=== PATIENT | male | born 1970 | race Caucasian/White ===

== ENCOUNTER 2019-06-30 12:34 | Inpatient (IN) | payer BC ==
[~2019-06-30] VITALS: Ht 182.9 cm; Wt 106.9 kg
[~2019-06-30 12:34] MED LIST: etomidate 2mg/ml inj. ONE; sod chloride 0.9% 10ml flush syringe IV ONE
[2019-06-30] MEDS ORDERED: normal saline 1000ML IV soln IVB ONE (13:00)
[2019-06-30] MEDS ORDERED: diltiazem 5mg/ml 5ml inj. IV ONE (13:00)
[2019-06-30] MEDS ORDERED: diltiazem-D5W 125mg/125ml 125 ML IV ONE (13:00)
[2019-06-30] MEDS ORDERED: diltiazem-NS 100mg/100ml 100 ML IV ONE (13:06)
--- NOTE | 2019-06-30 13:29 | NUR ---
CALLED PHARMACY, AMAURY ARNOLD NOT READY
[2019-06-30 13:32] LABS: BASOPHILS % (AUTO) 0.4 % (0-1); EOSINOPHILS # (AUTO) 0.1 X10'3 (0-0.9); EOSINOPHILS % (AUTO) 0.8 % (0-6); HEMATOCRIT 42.5 % (42.0-52.0); HEMOGLOBIN 14.6 g/dl (14.0-17.9); LYMPHOCYTES # (AUTO) 1.9 X10'3 (1.1-4.8); LYMPHOCYTES % (AUTO) 17.9 % (21-51); MEAN CORPUSCULAR HEMOGLOBIN 35.9 PG (27.0-31.0); MEAN CORPUSCULAR HGB CONC 34.4 g/dL (33.0-36.5); MEAN CORPUSCULAR VOLUME 104.2 FL (78-98); MEAN PLATELET VOLUME 8.1 FL (7.4-10.4); MONOCYTES # (AUTO) 0.9 X10'3 (0-0.9); MONOCYTES % (AUTO) 8.9 % (2-12); NEUTROPHILS # (AUTO) 7.5 X10'3 (1.8-7.7); PLATELET COUNT 284 X10'3 (140-440); RED BLOOD COUNT 4.08 X10'6 (4.70-6.10); RED CELL DISTRIBUTION WIDTH 15.9 % (11.5-14.5); WHITE BLOOD COUNT 10.4 X10'3 (4.5-11.0)
[2019-06-30] MEDS ORDERED: ondansetron/PF 4mg/2ml inj IV ONE (13:45)
[2019-06-30] MEDS ORDERED: LORazepam 2 mg/ml vial IV ONE (13:45)
--- NOTE | 2019-06-30 13:47 | NUR ---
DR SINGER IN FORMED THAT CARDIZEM BOLUS DID NOT AFFECT PATIETN'S HR. INFORMED PATIENT DRINKS 2 PINTS VODKA DAILY LAST DRINK 1000 TODAY
[2019-06-30 13:48] LABS: ALANINE AMINOTRANSFERASE 124 U/L (12-78); ALBUMIN 3.4 G/DL (3.4-5.0); ALKALINE PHOSPHATASE 50 IU/L (46-116); ANION GAP 14 (8-16); ASPARTATE AMINO TRANSFERASE 167 U/L (10-37); BILIRUBIN,TOTAL 1.5 MG/DL (0.1-1.0); BLOOD UREA NITROGEN 23 MG/DL (7-18); BUN/CREATININE RATIO 15.1 (5.4-32.0); CALCIUM 8.9 MG/DL (8.5-10.1); CHLORIDE 99 MMOL/L (99-107); CREATININE 1.52 MG/DL (0.60-1.10); GLUCOSE 109 MG/DL (70-104); POTASSIUM 3.6 MMOL/L (3.5-5.1); SODIUM 139 MMOL/L (135-145); TOTAL CARBON DIOXIDE 26.2 MMOL/L (24-32); TOTAL PROTEIN 6.8 G/DL (6.4-8.2); eGFR 49 ML/MIN
[2019-06-30 13:55] LABS: ETHANOL 0.022 GM/DL (0.0-0.010); LIPASE 214 U/L (73-393); MAGNESIUM 1.5 MG/DL (1.5-2.4)
--- NOTE | 2019-06-30 14:35 | NUR ---
PATIENT HR STILL IN THE 140'S MAGNESIUM IS 1.[address] BOB DR SINGER IS NOT IN THE ER AT THIS MOMENT. NO ORDERS
--- NOTE | 2019-06-30 14:36 | NUR ---
patient standing at bedside attempting to urinate
[2019-06-30] MEDS ORDERED: magnesium 2GM in 50ml NS 50 ML IV ONE (14:45)
[2019-06-30] MEDS ORDERED: aspirin 81mg tab.chew PO ONE (14:50)
[2019-06-30] MEDS ORDERED: metoprolol tartrate 1mg/ml inj IV ONE (14:50)
[2019-06-30] MEDS ORDERED: NO HOME MEDS (15:04)
[2019-06-30] MEDS ORDERED: dextrose 50%-water 50ml dispensing syringe IV PRN (15:20)
[2019-06-30] MEDS ORDERED: LORazepam 2 mg/ml vial IV PRN (15:20)
[2019-06-30] MEDS ORDERED: potassium Cl 20 mEq SR tablet PO PRN ×2 (15:20)
[2019-06-30] MEDS ORDERED: haloperidol 5mg tablet PO PRN ×2 (15:20→21:15)
[2019-06-30] MEDS ORDERED: LORazepam 1 MG tablet PO PRN (15:20)
[2019-06-30] MEDS ORDERED: morphine 2 MG/ML inj. syringe IV PRN (15:20)
[2019-06-30] MEDS ORDERED: diltiazem-NS 100mg/100ml 100 ML IV SCH ×2 (15:20→19:30)
[2019-06-30] MEDS ORDERED: thiamine 100mg/ml 2ml inj. IV ONE (15:20)
[2019-06-30] MEDS ORDERED: magnesium Cl slow-release 64mg tablet PO PRN (15:20)
[2019-06-30] MEDS ORDERED: acetaminophen 325mg tablet PO PRN ×2 (15:20)
[2019-06-30] MEDS ORDERED: magnesium 4gm in 100ml NS 100 ML IV PRN (15:20)
[2019-06-30] MEDS ORDERED: HYDROcodone/acetaminophen 5mg/325mg tablet PO PRN (15:20)
[2019-06-30] MEDS ORDERED: magnesium 2GM in 50ml NS 50 ML IV PRN (15:20)
[2019-06-30] MEDS ORDERED: haloperidol lactate 5mg/ml inj IM PRN ×2 (15:20→21:15)
[2019-06-30] MEDS ORDERED: ondansetron/PF 4mg/2ml inj IV PRN (15:20)
[2019-06-30] MEDS ORDERED: potassium CL 10mEq/100ml bag 100 ML IV PRN ×2 (15:20)
[2019-06-30] MEDS: normal saline 1000ml 1,000 ML IV SCH ×2 (15:57→19:45)
--- NOTE | 2019-06-30 15:58 | NUR ---
LOPRESSOR NOT GIVEN AT THIS TIME, PT'S BP 122/80
[2019-06-30 16:22] LABS: CLARITY,URINE CLEAR (Clear); GLUCOSE, URINE NEGATIVE (Neg); KETONES,URINE TRACE mg/dl (Neg); LEUKOCYTE ESTERASE ,URINE NEGATIVE (Neg); NITRITES, URINE NEGATIVE (Neg); OCCULT BLOOD,URINE TRACE-INTACT (Neg); PROTEIN,URINE 100 mg/dl (Neg)
[2019-06-30 16:25] LABS: URINE AMPHETAMINE SCREEN NEGATIVE (Neg); URINE BARBITUATE SCREEN NEGATIVE (Neg); URINE BENZODIAZEPINES SCREEN NEGATIVE (Neg); URINE CANNABINOID SCREEN NEGATIVE (Neg); URINE COCAINE SCREEN NEGATIVE (Neg); URINE METHADONE SCREEN NEGATIVE (Neg); URINE OPIATE SCREEN NEGATIVE (Neg); URINE PHENCYCLIDINE SCREEN NEGATIVE (Neg)
[2019-06-30 16:26] LABS: COLOR,URINE DARK YELLOW (Yellow); UA COLLECTION TYPE CLN CATCH MIDSTREAM
[2019-06-30 16:28] LABS: BACTERIA,URINE NONE SEEN /HPF (Neg); MUCUS STRANDS FEW /LPF (Neg); RBC,URINE 0-2 /HPF (0-2); SQUAMOUS EPITHELIAL CELL,UR FEW /LPF (FEW); WBC,URINE NONE SEEN /HPF (0-4)
[2019-06-30] MEDS ORDERED: iohexol 350MG/ML 100ml bottle IV ONE (16:34)
--- NOTE | 2019-06-30 16:56 | NUR ---
PT TO CT
[2019-06-30] MEDS ORDERED: FLU VACC QS 2019-20 (6 MOS UP) 60 MCG/0.5 ML VIAL IMVAC ONE (17:40)
[2019-06-30] MEDS ORDERED: pneumococcal 23-VAL P-sac vacc 25 mcg/0.5ml vial IMVAC ONE (17:40)
[2019-06-30 18:25] VITALS: BP 113/77
--- NOTE | 2019-06-30 18:29 | NUR ---
Patient in room MED 308. I have received report from Santa BRIGGS and had the opportunity to ask questions and assume patient care. bedside report completed.family present. no distress noted. Addendum: 06/30/19 at 1835 by Dary Bo RN reported from Sona ramirez RN. no family at bedside. no chest pain reports
--- NOTE | 2019-06-30 19:03 | NUR ---
notified Dr. Martin 1.pt HR sustained 138, with cardiezm administrered at 20ml. 2. per chart check cardizem ordered for 5 mls/hr. adjusted the cardizem to reflect current order. HR sustained 137. BP 111/93. Dr. Martin suggested to call hui DURAN for new cardizem orders. will administer 2000 beta isis now and continue to monitor HR . 3. currently NS 100 mls/hr. Lab show BNP 4105. previously recieved 2L/NS in ER. new orders to decrease NS to 50ml/hr Addendum: 06/30/19 at 2012 by Dary Bo RN 4. increase ETOH protocol to moderate
[2019-06-30] MEDS: docusate sod 100mg capsule PO SCH (19:44)
[2019-06-30] MEDS: carVEDilol 3.125mg tablet PO SCH (19:44)
[2019-06-30] MEDS: heparin, porcine 5000 units/ml vial SQ SCH (19:47)
[2019-06-30 20:11] VITALS: BP 116/92
[2019-06-30] MEDS ORDERED: temazepam 15mg capsule PO PRN (21:00)
[2019-06-30] MEDS: LORazepam 2 mg/ml vial IV PRN (21:42)
[2019-06-30 22:12] VITALS: BP 113/72
--- NOTE | 2019-06-30 22:29 | NUR ---
2nd page to Dr. Sahu. PAGER ID: [phone] MESSAGE: pattie resendiz 308 admit chest pain, SOB. ETOH HR remains 136 with diltizem drip at 10 mls. bp 113/72. will continue to monitor new orders increase cardizem to 15ml/hr
[2019-06-30] MEDS ORDERED: flumazenil 0.1 mg/ml inj. IV ONE (23:20)
[2019-06-30 23:25] VITALS: BP 48/11
[2019-06-30 23:30] VITALS: BP 65/23
[2019-06-30] MEDS ORDERED: normal saline 1000ml 1,000 ML IV ONE (23:30)
--- NOTE | 2019-06-30 23:30 | NUR ---
Rapid called. 2335 pt blood pressure 48/11 stop diltizem. recheck manual SBP 58. recheck 65/23, placed in Trendelenburg , NS open wide. pt a/o x1 hallicination noted. RT completed Blood gas. MD at bedside. new orders. d/c diltizem, bolus 1 L. -- 2339 bp 103/86 HR 135 --0000 bp 119/33 HR 116 will continue to monitor
[2019-06-30 23:39] VITALS: BP 103/86
[2019-06-30 23:41] LABS: ABG BASE EXCESS -5.2 mmol/L (-2.0-3.0); ABG HCO3 19.3 mmol/L (22.0-26.0); ABG OXYGEN SATURATION 86.7 % (95-98); ABG PH (T) 7.361 (7.350-7.450); ABG PO2 (T) 58.1 mmHg (83-108); ALLEN'S TEST Positive; FCOHb 1.3 % (0.5-1.5); FMetHb 0.2 % (0.3-1.12); FO2Hb 85.4 % (94-100); PATIENT TEMPERATURE 37.1; TOTAL HEMOGLOBIN 14.9 G/dl (14.0-17.9)
[2019-07-01] VITALS (20 sets, daily range): BP systolic 63–137; BP diastolic 33–89
[2019-07-01] MEDS: LORazepam 2 mg/ml vial IV PRN ×3 (00:53→09:09)
[2019-07-01 02:43] LABS: PARTIAL THROMBOPLASTIN TIME 27 SECONDS (22-32)
[2019-07-01 02:47] LABS: ALANINE AMINOTRANSFERASE 587 U/L (12-78); ALBUMIN 3.2 G/DL (3.4-5.0); ALKALINE PHOSPHATASE 58 IU/L (46-116); ANION GAP 13 (8-16); ASPARTATE AMINO TRANSFERASE 825 U/L (10-37); BILIRUBIN,TOTAL 3.9 MG/DL (0.1-1.0); BLOOD UREA NITROGEN 25 MG/DL (7-18); BUN/CREATININE RATIO 11.9 (5.4-32.0); CALCIUM 7.9 MG/DL (8.5-10.1); CHLORIDE 96 MMOL/L (99-107); GLUCOSE 98 MG/DL (70-104); HDL CHOLESTEROL 41 MG/DL (35-60); LDL CHOLESTEROL 83 MG/DL (50-100); MAGNESIUM 2.1 MG/DL (1.5-2.4); POTASSIUM 4.4 MMOL/L (3.5-5.1); SODIUM 132 MMOL/L (135-145); TOTAL CARBON DIOXIDE 23.1 MMOL/L (24-32); eGFR 34 ML/MIN
[2019-07-01 02:51] LABS: ALBUMIN/GLOBULIN RATIO 0.9 (1.1-1.5); CHOL/HDL RATIO 2.8 (0.00-4.99); CHOLESTEROL 116 MG/DL (0-200); TOTAL PROTEIN 6.8 G/DL (6.4-8.2); TRIGLYCERIDES 73 MG/DL (20-135)
[2019-07-01 02:55] LABS: BASOPHILS # (AUTO) 0.1 X10'3 (0-0.2); BASOPHILS % (AUTO) 0.6 % (0-1); EOSINOPHILS % (AUTO) 0.3 % (0-6); HEMATOCRIT 44.8 % (42.0-52.0); LYMPHOCYTES # (AUTO) 2.5 X10'3 (1.1-4.8); LYMPHOCYTES % (AUTO) 20.8 % (21-51); MEAN CORPUSCULAR HEMOGLOBIN 35.6 PG (27.0-31.0); MEAN CORPUSCULAR HGB CONC 33.5 g/dL (33.0-36.5); MEAN CORPUSCULAR VOLUME 106.4 FL (78-98); MEAN PLATELET VOLUME 8.6 FL (7.4-10.4); MONOCYTES # (AUTO) 1.1 X10'3 (0-0.9); MONOCYTES % (AUTO) 9.2 % (2-12); NEUTROPHILS # (AUTO) 8.1 X10'3 (1.8-7.7); NEUTROPHILS % (AUTO) 69.1 % (42-75); PLATELET COUNT 268 X10'3 (140-440); RED BLOOD COUNT 4.21 X10'6 (4.70-6.10); RED CELL DISTRIBUTION WIDTH 16.1 % (11.5-14.5); WHITE BLOOD COUNT 11.8 X10'3 (4.5-11.0)
[2019-07-01] MEDS ORDERED: insulin Lispro (HumaLOG) vial - multi-dose SQ SCH (04:30)
[2019-07-01] MEDS ORDERED: dextrose 50%-water 50ml dispensing syringe IV PRN ×2 (04:30)
[2019-07-01] MEDS ORDERED: dextrose ORAL solution 15 GM/59 ML bottle PO PRN ×2 (04:30)
[2019-07-01] MEDS ORDERED: glucagon, human recombinant 1mg kit SUBCUT PRN (04:30)
--- NOTE | 2019-07-01 05:13 | NUR ---
Dr. Sahu notified r/t hypoglycemia. critical blood glucose of 42 at 0420 pt had no IV access. administred juice, recheck blood glucose 34. administered 30 grams dexrose PO recheck blood glucose 60 alternative IV access placed. administered 25 gram IV D50 will continue to monitor.
--- NOTE | 2019-07-01 06:00 | NUR ---
Patient in room MED 308. I have received report from CHESTER Llanos and had the opportunity to ask questions and assume patient care.
[2019-07-01] MEDS: K and/or MAG REPLACEMENT MC SCH (08:00)
[2019-07-01] MEDS: nicotine 14mg patch - 24hr TD SCH (08:00)
[2019-07-01] MEDS: lisinopril 10 MG tablet PO SCH (08:00)
[2019-07-01] MEDS: docusate sod 100mg capsule PO SCH (08:00)
--- NOTE | 2019-07-01 08:15 | NUR ---
ULTRASOUND PAGED: 308: MARIELA - GONZALO US ORDERED. TY
[2019-07-01] MEDS: carVEDilol 3.125mg tablet PO SCH ×2 (09:05→20:00)
[2019-07-01] MEDS: heparin, porcine 5000 units/ml vial SQ SCH ×2 (09:06→21:34)
--- NOTE | 2019-07-01 10:10 | NUR ---
Started code blue at 10:10. Pt was observed going into bradycardia (35), then became unresponsive. Started resuscitation process. Pt transferred to ICU around 10:40 am. Hand off report done in ICU at bedside.
[2019-07-01 10:46] LABS: BASOPHILS # (AUTO) 0.1 X10'3 (0-0.2); BASOPHILS % (AUTO) 0.2 % (0-1); EOSINOPHILS % (AUTO) 0.1 % (0-6); HEMATOCRIT 44.8 % (42.0-52.0); HEMOGLOBIN 14.6 g/dl (14.0-17.9); LYMPHOCYTES # (AUTO) 1.8 X10'3 (1.1-4.8); LYMPHOCYTES % (AUTO) 7.7 % (21-51); MEAN CORPUSCULAR HEMOGLOBIN 35.9 PG (27.0-31.0); MEAN CORPUSCULAR HGB CONC 32.5 g/dL (33.0-36.5); MEAN CORPUSCULAR VOLUME 110.3 FL (78-98); MEAN PLATELET VOLUME 8.8 FL (7.4-10.4); MONOCYTES # (AUTO) 2.4 X10'3 (0-0.9); MONOCYTES % (AUTO) 10.3 % (2-12); NEUTROPHILS # (AUTO) 18.8 X10'3 (1.8-7.7); NEUTROPHILS % (AUTO) 81.7 % (42-75); PLATELET COUNT 165 X10'3 (140-440); RED BLOOD COUNT 4.06 X10'6 (4.70-6.10); RED CELL DISTRIBUTION WIDTH 16.8 % (11.5-14.5); WHITE BLOOD COUNT 23.1 X10'3 (4.5-11.0)
[2019-07-01] MEDS ORDERED: midazolam 2 mg/2 ml injection ONE ×2 (10:59)
--- NOTE | 2019-07-01 11:00 | NUR ---
Patient in room ICU 2042. I have received pt from Clary BRIGGS and assumed patient care.
[2019-07-01 11:01] LABS: PARTIAL THROMBOPLASTIN TIME 31 SECONDS (22-32)
[2019-07-01] MEDS: K, MAG and/or Phos replacement - Verify level? MC SCH (11:10)
[2019-07-01] MEDS ORDERED: ondansetron/PF 4mg/2ml inj IV PRN (11:10)
[2019-07-01] MEDS ORDERED: morphine 4 MG/ML inj SYRINge IV PRN (11:10)
[2019-07-01] MEDS ORDERED: potassium Cl 20 mEq SR tablet PO PRN ×2 (11:10)
[2019-07-01] MEDS ORDERED: morphine 2 MG/ML inj. syringe IV PRN (11:10)
[2019-07-01] MEDS ORDERED: acetaminophen 325mg tablet PO PRN (11:10)
[2019-07-01] MEDS ORDERED: magnesium hydroxide 30ml (MOM) UD suspension PO PRN (11:10)
[2019-07-01 11:13] LABS: ALBUMIN 3.1 G/DL (3.4-5.0); ALKALINE PHOSPHATASE 68 IU/L (46-116); AMYLASE 31 U/L (25-115); ANION GAP 19 (8-16); BILIRUBIN,TOTAL 6.3 MG/DL (0.1-1.0); BLOOD UREA NITROGEN 32 MG/DL (7-18); BUN/CREATININE RATIO 12.9 (5.4-32.0); CALCIUM 8.5 MG/DL (8.5-10.1); CHLORIDE 95 MMOL/L (99-107); CREATININE 2.49 MG/DL (0.60-1.10); GLUCOSE 83 MG/DL (70-104); LIPASE 402 U/L (73-393); MAGNESIUM 2.2 MG/DL (1.5-2.4); SODIUM 132 MMOL/L (135-145); TROPONIN I 0.19 NG/ML (0.0-0.05); eGFR 28 ML/MIN
[2019-07-01 11:16] LABS: ABG BASE EXCESS -22.2 mmol/L (-2.0-3.0); ABG HCO3 10.6 mmol/L (22.0-26.0); ABG OXYGEN SATURATION 88.6 % (95-98); ABG PCO2 (T) 52.9 mmHg (35.0-45.0); ABG PH (T) 6.919 (7.350-7.450); ABG PO2 (T) 88.6 mmHg (83-108); FCOHb 0.5 % (0.5-1.5); FMetHb 0.3 % (0.3-1.12); FO2Hb 87.9 % (94-100); MINUTE VOLUME 12 L/min; PEEP 15 cm H2O; RESPIRATORY RATE 18 b/min; RESPIRATORY RATE (OBSERVED) 21 b/min; TIDAL VOLUME 550 mL; TOTAL HEMOGLOBIN 14.3 G/dl (14.0-17.9)
[2019-07-01] MEDS ORDERED: midazolam 2 mg/2 ml injection IV ONE (11:25)
[2019-07-01] MEDS ORDERED: sodium bicarbonate (8.4%) 1 mEq/ml syringe IV ONE (11:25)
[2019-07-01 11:27] LABS: ALANINE AMINOTRANSFERASE 2329 U/L (12-78); ASPARTATE AMINO TRANSFERASE 3688 U/L (10-37); PHOSPHORUS 8.7 MG/DL (2.3-4.5); POTASSIUM 5.6 MMOL/L (3.5-5.1); TOTAL PROTEIN 6.1 G/DL (6.4-8.2)
[2019-07-01 11:29] LABS: ANISOCYTOSIS 1+; NUCLEATED RED BLOOD CELLS 2 /100WBC (0-0); PLATELET ESTIMATE NORMAL; TOTAL CELLS COUNTED 100
[2019-07-01 11:31] LABS: LARGE PLATELETS FEW; POLYCHROMASIA 2+; TOXIC GRANULATION 1+; TOXIC VACUOLATION 2+
[2019-07-01] MEDS: normal saline 1000ml 1,000 ML IV SCH (11:57)
[2019-07-01] MEDS: FENTANYL-0.9 % NACL/PF 100 ML IV PRN ×2 (11:59→22:01)
[2019-07-01] MEDS: midazolam 100mg in NS 100ml 100 ML IV PRN ×2 (12:02→18:35)
[2019-07-01] MEDS: pantoprazole 40 MG vial IV SCH (12:31)
[2019-07-01] MEDS: ipratropium/albuterol 3ml nebule NEB PRN (12:32)
--- NOTE | 2019-07-01 13:05 | NUR ---
Initial: Pt admit with SOB. Now s/p code blue requiring intubation and has been transferred to ICU. Patient's current BMI overweight however is a pt stated weight with no documented wt hx. Per rapid response note pt noted to be morbidly obese. TF recommendations below calculated using IBW for if prolonged intubation and to receive nutrition support, although a scaled weight would be preferred for optimal nutrition calculations. Pt now receiving banana bag given EtOH hx. LBM 06/30. Will continue to follow. Recommendations: 1) IF TF, continuous Vital High Protein with goal rate of 80 mL/hr 2) IF above, fluid flushes per MD given low Na, 132 today 3) IF above, prealbumin q /; daily weights 4) Scaled weight for optimal nutrition recommendations 5) Banana bag given EtOH abuse 6) Bowel care 7) Diet advancement to heart healthy as medically indicated following extubation Addendum: 07/01/19 at [address] Amended: Links added.
[2019-07-01 15:15] LABS: ABG BASE EXCESS -8.6 mmol/L (-2.0-3.0); ABG HCO3 17.6 mmol/L (22.0-26.0); ABG OXYGEN SATURATION 98.7 % (95-98); ABG PCO2 (T) 32.3 mmHg (35.0-45.0); ABG PH (T) 7.332 (7.350-7.450); ABG PO2 (T) 144.6 mmHg (83-108); FMetHb 0.2 % (0.3-1.12); FO2Hb 98.5 % (94-100); MINUTE VOLUME 16 L/min; PATIENT TEMPERATURE 32.8; PEEP 15 cm H2O; RESPIRATORY RATE 24 b/min; RESPIRATORY RATE (OBSERVED) 24 b/min; TIDAL VOLUME 650 mL; TOTAL HEMOGLOBIN 14.5 G/dl (14.0-17.9)
[2019-07-01 15:21] LABS: OXYGEN SATURATION (MIXED VEN) 63.4 % (60-80); PO2 MIXED VENOUS (TEMP COR) 30.6 mmHg (35-46)
[2019-07-01] MEDS ORDERED: acetaminophen 1,000mg/100ml IV 100 ML IV ONE (15:25)
[2019-07-01] MEDS ORDERED: magnesium 4gm in 100ml NS 100 ML IV ONE (15:25)
[2019-07-01 16:59] LABS: PARTIAL THROMBOPLASTIN TIME 36 SECONDS (22-32)
[2019-07-01 17:13] LABS: ALBUMIN 2.7 G/DL (3.4-5.0); ANION GAP 18 (8-16); BLOOD UREA NITROGEN 39 MG/DL (7-18); BUN/CREATININE RATIO 12.4 (5.4-32.0); CALCIUM 8.9 MG/DL (8.5-10.1); CHLORIDE 97 MMOL/L (99-107); CREATININE 3.15 MG/DL (0.60-1.10); GLUCOSE 81 MG/DL (70-104); PHOSPHORUS 9.9 MG/DL (2.3-4.5); POTASSIUM 5.2 MMOL/L (3.5-5.1); SODIUM 134 MMOL/L (135-145); TOTAL CARBON DIOXIDE 18.6 MMOL/L (24-32); eGFR 21 ML/MIN
[2019-07-01] MEDS ORDERED: furosemide 10 MG/1 ML 10ml inj IV ONE (17:35)
--- NOTE | 2019-07-01 18:15 | NUR ---
Problems reprioritized. Patient report given, questions answered & plan of care reviewed with Nadeen BRIGGS.
--- NOTE | 2019-07-01 18:15 | NUR ---
Patient in room ICU 2042. I have received report from Anabel BRIGGS and had the opportunity to ask questions and assume patient care. Hypothermia protocol in place, Arctic Sun cooling device on and cooling pads on patient. Rodney hugger on for observed shivering per protocol. Versed at max dose, Fentanyl increased per protocol. Buspar administered by day shift. Small amount of coffee ground gastric contents observed in OG tube, current labs reviewed including H&HMinnie Aragon at bedside, updated, orders received.
[2019-07-01] MEDS: busPIRone 15mg tablet OGT SCH ×2 (18:25→23:40)
[2019-07-01] MEDS ORDERED: NORepinephrine 8mg/ 250ml NS 250 ML IV PRN (18:42)
[2019-07-01] MEDS ORDERED: diltiazem-NS 100mg/100ml 100 ML IV SCH (19:30)
--- NOTE | 2019-07-01 19:35 | NUR ---
Klaus Mata at bedside,update given. Orders received.
[2019-07-01 20:10] LABS: ABG HCO3 17.6 mmol/L (22.0-26.0); ABG OXYGEN SATURATION 98.9 % (95-98); ABG PCO2 (T) 22.1 mmHg (35.0-45.0); ABG PO2 (T) 132.1 mmHg (83-108); FCOHb 0.3 % (0.5-1.5); FMetHb 0.2 % (0.3-1.12); FO2Hb 98.4 % (94-100); MINUTE VOLUME 16 L/min; PATIENT TEMPERATURE 32.5; PEEP 15 cm H2O; RESPIRATORY RATE 24 b/min; RESPIRATORY RATE (OBSERVED) 24 b/min; TIDAL VOLUME 650 mL; TOTAL HEMOGLOBIN 14.2 G/dl (14.0-17.9)
--- NOTE | 2019-07-01 20:11 | NUR ---
Current ABG result reviewed, Abigail updated. Orders received. Hypothermia protocol in progress. Bilateral rhythmic motion of upper torso decreased p/fentanyl drip increased. No observable shivering noted at this time. Will continue to monitor.
[2019-07-01] MEDS: insulin glargine (Lantus) pen - multi-dose SQ SCH (21:00)
[2019-07-01] MEDS ORDERED: albumin (human) 25% 100 ML IV solution IV ONE (21:15)
[2019-07-01] MEDS: docusate sodium 100mg/10ml UD cup PO SCH (21:33)
[2019-07-01 23:15] LABS: ALBUMIN 3.3 G/DL (3.4-5.0); ANION GAP 20 (8-16); BLOOD UREA NITROGEN 42 MG/DL (7-18); BUN/CREATININE RATIO 12.7 (5.4-32.0); CALCIUM 8.5 MG/DL (8.5-10.1); CHLORIDE 95 MMOL/L (99-107); CREATININE 3.31 MG/DL (0.60-1.10); GLUCOSE 87 MG/DL (70-104); MAGNESIUM 3.1 MG/DL (1.5-2.4); POTASSIUM 4.4 MMOL/L (3.5-5.1); SODIUM 134 MMOL/L (135-145); TOTAL CARBON DIOXIDE 19.2 MMOL/L (24-32); eGFR 20 ML/MIN
[2019-07-01] MEDS: DOBUTamine-DoBUTrex 500mg/D5W 250 ML IV PRN (23:18)
[2019-07-01 23:23] LABS: PHOSPHORUS 8.2 MG/DL (2.3-4.5)
[2019-07-02] VITALS (24 sets, daily range): BP systolic 94–122; BP diastolic 56–71
--- NOTE | 2019-07-02 00:21 | NUR ---
Hypothermia protocol in progress. CI improved p/Dobutamine:2.4. No obvious signs of shivering. Will continue to monitor.
[2019-07-02 03:21] LABS: ABG BASE EXCESS -3.6 mmol/L (-2.0-3.0); ABG HCO3 18.9 mmol/L (22.0-26.0); ABG OXYGEN SATURATION 94.3 % (95-98); ABG PCO2 (T) 22.7 mmHg (35.0-45.0); ABG PH (T) 7.521 (7.350-7.450); ABG PO2 (T) 57.4 mmHg (83-108); FCOHb 0.2 % (0.5-1.5); FO2Hb 94.1 % (94-100); MINUTE VOLUME 13 L/min; PATIENT TEMPERATURE 32.9; PEEP 10 cm H2O; RESPIRATORY RATE 24 b/min; RESPIRATORY RATE (OBSERVED) 24 b/min; TIDAL VOLUME 550 mL; TOTAL HEMOGLOBIN 13.2 G/dl (14.0-17.9)
[2019-07-02 03:35] LABS: OXYGEN SATURATION (MIXED VEN) 77.9 % (60-80); PO2 MIXED VENOUS (TEMP COR) 33.8 mmHg (35-46)
[2019-07-02] MEDS: FENTANYL-0.9 % NACL/PF 100 ML IV PRN ×2 (03:38→15:15)
[2019-07-02 03:42] LABS: BASOPHILS % (AUTO) 0.1 % (0-1); EOSINOPHILS % (AUTO) 0.1 % (0-6); HEMATOCRIT 36.3 % (42.0-52.0); HEMOGLOBIN 12.5 g/dl (14.0-17.9); LYMPHOCYTES # (AUTO) 0.5 X10'3 (1.1-4.8); LYMPHOCYTES % (AUTO) 6.4 % (21-51); MEAN CORPUSCULAR HEMOGLOBIN 36.3 PG (27.0-31.0); MEAN CORPUSCULAR HGB CONC 34.3 g/dL (33.0-36.5); MEAN CORPUSCULAR VOLUME 105.7 FL (78-98); MEAN PLATELET VOLUME 8.5 FL (7.4-10.4); MONOCYTES # (AUTO) 0.2 X10'3 (0-0.9); MONOCYTES % (AUTO) 2.6 % (2-12); NEUTROPHILS # (AUTO) 7.4 X10'3 (1.8-7.7); NEUTROPHILS % (AUTO) 90.8 % (42-75); PLATELET COUNT 89 X10'3 (140-440); RED BLOOD COUNT 3.44 X10'6 (4.70-6.10); RED CELL DISTRIBUTION WIDTH 16.2 % (11.5-14.5); WHITE BLOOD COUNT 8.2 X10'3 (4.5-11.0)
[2019-07-02 04:03] LABS: PARTIAL THROMBOPLASTIN TIME 41 SECONDS (22-32)
--- NOTE | 2019-07-02 04:15 | NUR ---
Hypothermia protocol in progress. Vital signs stable. Will continue to monitor.
[2019-07-02 04:30] LABS: ALKALINE PHOSPHATASE 53 IU/L (46-116); ANION GAP 19 (8-16); BLOOD UREA NITROGEN 48 MG/DL (7-18); BUN/CREATININE RATIO 13.3 (5.4-32.0); CALCIUM 7.8 MG/DL (8.5-10.1); CHLORIDE 95 MMOL/L (99-107); CREATININE 3.61 MG/DL (0.60-1.10); GLUCOSE 98 MG/DL (70-104); MAGNESIUM 2.9 MG/DL (1.5-2.4); POTASSIUM 4.1 MMOL/L (3.5-5.1); SODIUM 134 MMOL/L (135-145); TOTAL CARBON DIOXIDE 19.6 MMOL/L (24-32); TROPONIN I 0.49 NG/ML (0.0-0.05); eGFR 18 ML/MIN
[2019-07-02 04:44] LABS: PHOSPHORUS 7.6 MG/DL (2.3-4.5); TOTAL PROTEIN 4.5 G/DL (6.4-8.2)
[2019-07-02] MEDS: midazolam 100mg in NS 100ml 100 ML IV PRN (04:49)
[2019-07-02 05:10] LABS: ALANINE AMINOTRANSFERASE 6118 U/L (12-78); ASPARTATE AMINO TRANSFERASE > 7000 U/L (10-37)
--- NOTE | 2019-07-02 06:10 | NUR ---
Patient in room ICU 2042. I have received report from Nadeen BRIGGS and had the opportunity to ask questions and assume patient care.
--- NOTE | 2019-07-02 06:16 | NUR ---
Problems reprioritized. Patient report given, questions answered & plan of care reviewed with Khanh BRIGGS.
--- NOTE | 2019-07-02 07:00 | NUR ---
Letitia called and requested update on patient. Explained that the patient is on sedation and in the maintaining phase of the cooling therapy and that there have been no changes since I arrived at 0600. States that she will be in to see him soon.
[2019-07-02] MEDS: K and/or MAG REPLACEMENT MC SCH (07:15)
[2019-07-02] MEDS: K, MAG and/or Phos replacement - Verify level? MC SCH (07:16)
[2019-07-02] MEDS: folic acid inj. 2 MG, thiamine inj. 100 MG in normal saline 100ml IV soln 100 ML IV SCH (07:20)
[2019-07-02] MEDS: lisinopril 10 MG tablet PO SCH (07:29)
[2019-07-02] MEDS: heparin, porcine 5000 units/ml vial SQ SCH ×2 (07:30→19:27)
[2019-07-02] MEDS: nicotine 14mg patch - 24hr TD SCH (07:31)
[2019-07-02] MEDS: carVEDilol 3.125mg tablet PO SCH (07:43)
[2019-07-02] MEDS: busPIRone 15mg tablet OGT SCH ×3 (07:43→23:50)
[2019-07-02] MEDS: docusate sodium 100mg/10ml UD cup PO SCH ×2 (07:44→19:26)
[2019-07-02] MEDS: pantoprazole 40 MG vial IV SCH (07:44)
--- NOTE | 2019-07-02 08:45 | NUR ---
Letitia here to see patient and Dr. Montiel here as well and discussed patient's condition and that it is too early to determine status of brain and heart at this time. Will continue to monitor.
--- NOTE | 2019-07-02 09:00 | NUR ---
Discussed with Dr. Montiel the patient had negative gag reflex and sluggish pupillary response with 1 mm pupil size, received order to hold all sedation to assess neurological status. Discussed blood pressure being 98-106 and MAP ranging from 68-70 arterial and he states that this is okay for now. Discussed that he received coreg based on parameter of being 103 and he stated discontinue coreg and lisinopril. Also discussed coffee ground emesis and received order to change BID protonix to a protonix drip and also to give Vitamin K 10 mg once. Will continue to monitor.
[2019-07-02] MEDS: MVI, adult No.4 with vit. K 10 ML in dextrose 5% water 500ml 500 ML IV SCH ×2 (09:05)
[2019-07-02] MEDS ORDERED: phytonadione inj. 10 MG in normal saline 100ml IV soln 99 ML IV ONE (09:15)
[2019-07-02 09:46] LABS: ABG BASE EXCESS -1.6 mmol/L (-2.0-3.0); ABG HCO3 21.3 mmol/L (22.0-26.0); ABG OXYGEN SATURATION 92.7 % (95-98); ABG PH (T) 7.516 (7.350-7.450); ABG PO2 (T) 52.6 mmHg (83-108); FCOHb 0.2 % (0.5-1.5); FMetHb 0.2 % (0.3-1.12); FO2Hb 92.3 % (94-100); MINUTE VOLUME 10 L/min; PATIENT TEMPERATURE 32.9; PEEP 10 cm H2O; RESPIRATORY RATE 20 b/min; RESPIRATORY RATE (OBSERVED) 20 b/min; TIDAL VOLUME 550 mL; TOTAL HEMOGLOBIN 13.4 G/dl (14.0-17.9)
[2019-07-02 09:50] LABS: OXYGEN SATURATION (MIXED VEN) 74.8 % (60-80); PO2 MIXED VENOUS (TEMP COR) 31.8 mmHg (35-46)
--- NOTE | 2019-07-02 10:23 | NUR ---
Called [facility], spoke with Trenton and received a reference # [id number]. Discussed past medical history and current medical status. States that patient is registered as an organ donor but at this time the patient is not a potential organ donor due to kidney and liver labs. States to call if cardiac .
--- NOTE | 2019-07-02 10:54 | NUR ---
Notified Dr. Montiel that the patient has positive blood culture for anaerobic gram - cocci. Dr. Montiel states he is aware of positive blood culture. Will continue to monitor.
--- NOTE | 2019-07-02 11:42 | NUR ---
Spoke to Charley pharmacist to verify that Vitamin K and MVI are able to be Y-ported. Charley states yes they are compatible at the y-port. Will continue to monitor.
[2019-07-02] MEDS: pantoprazole 40MG/NS 100ML BAG 100 ML IV SCH ×4 (11:55→21:21)
--- NOTE | 2019-07-02 13:30 | NUR ---
Charlene (mother of patient's daughters) requests that she be the one to tell the daughters if there is change in the patient condition. Explain that if the daughters are here and request information the doctor will likely tell them. She states understanding, will continue to monitor.
--- NOTE | 2019-07-02 14:00 | NUR ---
Artic Sun alarmed that the cooling and maintaining time has completed and it is time for rewarming. Will continue to monitor.
[2019-07-02 14:24] LABS: ALBUMIN 2.7 G/DL (3.4-5.0); ANION GAP 12 (8-16); BLOOD UREA NITROGEN 57 MG/DL (7-18); BUN/CREATININE RATIO 14.7 (5.4-32.0); CALCIUM 7.3 MG/DL (8.5-10.1); CHLORIDE 97 MMOL/L (99-107); CREATININE 3.87 MG/DL (0.60-1.10); GLUCOSE 148 MG/DL (70-104); MAGNESIUM 2.9 MG/DL (1.5-2.4); POTASSIUM 3.7 MMOL/L (3.5-5.1); SODIUM 133 MMOL/L (135-145); TOTAL CARBON DIOXIDE 24.1 MMOL/L (24-32); eGFR 17 ML/MIN
[2019-07-02 14:38] LABS: PHOSPHORUS 8.2 MG/DL (2.3-4.5)
--- NOTE | 2019-07-02 16:30 | NUR ---
Called Dr. Montiel to notify that the patient's MAP was 68-70 arterial, urine output is minimal between 5-8ml/Hour, dobutamine is at 2 mcg/kg/min, CI is decreasing to 2.1, and rewarming started at 1400. Dr. Montiel states that he provided order for albumin 5% 200ml every 8 hours x6 doses, started now. Will continue to monitor.
[2019-07-02] MEDS: albumin (human) 25% 100 ML IV solution IV SCH ×2 (16:43→23:50)
--- NOTE | 2019-07-02 18:25 | NUR ---
Problems reprioritized. Patient report given, questions answered & plan of care reviewed with Alexandra BRIGGS.
--- NOTE | 2019-07-02 18:45 | NUR ---
Patient in room ICU 2042. I have received report from CHESTER Cassidy and had the opportunity to ask questions and assume patient care.
[2019-07-02] MEDS: insulin glargine (Lantus) pen - multi-dose SQ SCH (20:00)
[2019-07-02] MEDS ORDERED: LORazepam 1 MG tablet PO PRN ×2 (20:15→21:15)
[2019-07-02] MEDS ORDERED: LORazepam 2 mg/ml vial IV PRN ×2 (20:15→21:15)
[2019-07-02 20:22] LABS: ALBUMIN 3.5 G/DL (3.4-5.0); ANION GAP 13 (8-16); BLOOD UREA NITROGEN 61 MG/DL (7-18); BUN/CREATININE RATIO 14.2 (5.4-32.0); CALCIUM 6.9 MG/DL (8.5-10.1); CHLORIDE 96 MMOL/L (99-107); GLUCOSE 98 MG/DL (70-104); MAGNESIUM 2.9 MG/DL (1.5-2.4); POTASSIUM 3.7 MMOL/L (3.5-5.1); SODIUM 134 MMOL/L (135-145); TOTAL CARBON DIOXIDE 24.9 MMOL/L (24-32); eGFR 15 ML/MIN
[2019-07-02 20:23] LABS: PHOSPHORUS 8.4 MG/DL (2.3-4.5)
[2019-07-02 23:26] LABS: ABG BASE EXCESS -2.3 mmol/L (-2.0-3.0); ABG OXYGEN SATURATION 95.6 % (95-98); ABG PCO2 (T) 38.2 mmHg (35.0-45.0); ABG PH (T) 7.389 (7.350-7.450); ABG PO2 (T) 80.4 mmHg (83-108); FCOHb 0.7 % (0.5-1.5); FMetHb 0.2 % (0.3-1.12); FO2Hb 94.7 % (94-100); PATIENT TEMPERATURE 35.2; PEEP 10 cm H2O; RESPIRATORY RATE 14 b/min; RESPIRATORY RATE (OBSERVED) 14 b/min; TIDAL VOLUME 550 mL; TOTAL HEMOGLOBIN 13.7 G/dl (14.0-17.9)
[2019-07-02] MEDS: normal saline 1000ml 1,000 ML IV SCH (23:45)
[2019-07-03] VITALS (23 sets, daily range): BP systolic 88–146; BP diastolic 52–92
[2019-07-03 02:08] LABS: BASOPHILS % (AUTO) 0.2 % (0-1); EOSINOPHILS % (AUTO) 0.3 % (0-6); HEMATOCRIT 35.6 % (42.0-52.0); HEMOGLOBIN 12.3 g/dl (14.0-17.9); LYMPHOCYTES # (AUTO) 0.7 X10'3 (1.1-4.8); LYMPHOCYTES % (AUTO) 10.5 % (21-51); MEAN CORPUSCULAR HEMOGLOBIN 36.6 PG (27.0-31.0); MEAN CORPUSCULAR HGB CONC 34.5 g/dL (33.0-36.5); MEAN CORPUSCULAR VOLUME 106.1 FL (78-98); MEAN PLATELET VOLUME 9.2 FL (7.4-10.4); MONOCYTES # (AUTO) 0.3 X10'3 (0-0.9); MONOCYTES % (AUTO) 4.1 % (2-12); NEUTROPHILS # (AUTO) 5.3 X10'3 (1.8-7.7); NEUTROPHILS % (AUTO) 84.9 % (42-75); PLATELET COUNT 84 X10'3 (140-440); RED BLOOD COUNT 3.35 X10'6 (4.70-6.10); RED CELL DISTRIBUTION WIDTH 16.3 % (11.5-14.5); WHITE BLOOD COUNT 6.2 X10'3 (4.5-11.0)
[2019-07-03 02:39] LABS: ALBUMIN 4.3 G/DL (3.4-5.0); ALKALINE PHOSPHATASE 54 IU/L (46-116); ANION GAP 17 (8-16); BILIRUBIN,TOTAL 5.5 MG/DL (0.1-1.0); BLOOD UREA NITROGEN 64 MG/DL (7-18); CALCIUM 6.8 MG/DL (8.5-10.1); CHLORIDE 96 MMOL/L (99-107); CREATININE 4.58 MG/DL (0.60-1.10); GLUCOSE 85 MG/DL (70-104); MAGNESIUM 2.9 MG/DL (1.5-2.4); PHOSPHORUS 7.7 MG/DL (2.3-4.5); POTASSIUM 3.9 MMOL/L (3.5-5.1); SODIUM 135 MMOL/L (135-145); TOTAL CARBON DIOXIDE 22.1 MMOL/L (24-32); eGFR 14 ML/MIN
[2019-07-03] MEDS: pantoprazole 40MG/NS 100ML BAG 100 ML IV SCH ×5 (03:00→23:52)
[2019-07-03 03:01] LABS: ALBUMIN/GLOBULIN RATIO 3.3 (1.1-1.5); TOTAL PROTEIN 5.6 G/DL (6.4-8.2)
[2019-07-03 03:10] LABS: ALANINE AMINOTRANSFERASE 6151 U/L (12-78); ASPARTATE AMINO TRANSFERASE > 7000 U/L (10-37)
[2019-07-03 03:36] LABS: ABG BASE EXCESS -2.8 mmol/L (-2.0-3.0); ABG OXYGEN SATURATION 92.6 % (95-98); ABG PCO2 (T) 37.1 mmHg (35.0-45.0); ABG PH (T) 7.387 (7.350-7.450); ABG PO2 (T) 69.2 mmHg (83-108); FCOHb 0.1 % (0.5-1.5); FMetHb 0.2 % (0.3-1.12); FO2Hb 92.3 % (94-100); PATIENT TEMPERATURE 36.3; PEEP 10 cm H2O; RESPIRATORY RATE 14 b/min; RESPIRATORY RATE (OBSERVED) 14 b/min; TIDAL VOLUME 550 mL; TOTAL HEMOGLOBIN 12.8 G/dl (14.0-17.9)
[2019-07-03] MEDS: DOBUTamine-DoBUTrex 500mg/D5W 250 ML IV PRN (04:47)
[2019-07-03 06:23] LABS: ANISOCYTOSIS 1+; NUCLEATED RED BLOOD CELLS 3 /100WBC (0-0); PLATELET ESTIMATE DECREASED; TOTAL CELLS COUNTED 100
[2019-07-03 06:26] LABS: BURR CELLS FEW; POLYCHROMASIA FEW
[2019-07-03] MEDS: docusate sodium 100mg/10ml UD cup PO SCH ×2 (07:55→21:00)
[2019-07-03] MEDS: busPIRone 15mg tablet OGT SCH ×2 (07:55→16:50)
[2019-07-03] MEDS: folic acid inj. 2 MG, thiamine inj. 100 MG in normal saline 100ml IV soln 100 ML IV SCH (07:56)
[2019-07-03] MEDS: albumin (human) 25% 100 ML IV solution IV SCH ×3 (07:56→23:44)
[2019-07-03] MEDS: nicotine 14mg patch - 24hr TD SCH (07:57)
[2019-07-03] MEDS: MVI, adult No.4 with vit. K 10 ML in dextrose 5% water 500ml 500 ML IV SCH ×2 (07:57)
[2019-07-03] MEDS: heparin, porcine 5000 units/ml vial SQ SCH ×2 (07:57→20:00)
[2019-07-03] MEDS: K and/or MAG REPLACEMENT MC SCH (08:00)
[2019-07-03] MEDS: K, MAG and/or Phos replacement - Verify level? MC SCH (08:00)
[2019-07-03] MEDS: ipratropium/albuterol 3ml nebule NEB PRN ×2 (11:12→16:18)
--- NOTE | 2019-07-03 11:30 | NUR ---
turned patient and he became very agitated, this is the first sign of purposeful movement that i have seen. Patient was thrashing head and pulling at restraints. He was also peak pressuring on the vent and stacking breaths. Called DR. Montiel he stated to sedate the patient
[2019-07-03] MEDS: midazolam 100mg in NS 100ml 100 ML IV PRN (13:18)
[2019-07-03] MEDS: FENTANYL-0.9 % NACL/PF 100 ML IV PRN (13:57)
[2019-07-03] MEDS ORDERED: cefepime 1GM in D5W 50mL 50 ML IV SCH (15:00)
[2019-07-03] MEDS ORDERED: piperacillin/tazo 3.375gm/50ml 50 ML IV SCH (16:00)
--- NOTE | 2019-07-03 16:37 | NUR ---
Patient in room ICU 2042. I have received report from Alexandra BRIGGS and had the opportunity to ask questions and assume patient care.
--- NOTE | 2019-07-03 16:48 | NUR ---
Held 1600 albumin as his map is in the high 90's to low 100's, albumin was originally ordered for a low map. consulted with wire charger and she agreed to hold albumin
--- NOTE | 2019-07-03 18:00 | NUR ---
Called Dr Diaz regarding patient sounding increasingly wet in the lung beasley, and that he is peak pressuring the vent, also informed him that the patient is also making a minimal amount of urine. He stated to go up on the versed and that he will not have any other new orders till he can assess the patient
--- NOTE | 2019-07-03 18:39 | NUR ---
Problems reprioritized. Patient report given, questions answered & plan of care reviewed with Mac RN.
[2019-07-03] MEDS: normal saline 1000ml 1,000 ML IV SCH (20:04)
[2019-07-03] MEDS: insulin glargine (Lantus) pen - multi-dose SQ SCH (21:00)
[2019-07-03 22:00] LABS: ABG BASE EXCESS -7.1 mmol/L (-2.0-3.0); ABG HCO3 20.1 mmol/L (22.0-26.0); ABG OXYGEN SATURATION 90.9 % (95-98); ABG PCO2 (T) 44.5 mmHg (35.0-45.0); ABG PH (T) 7.266 (7.350-7.450); ABG PO2 (T) 66.1 mmHg (83-108); FCOHb 0.4 % (0.5-1.5); FMetHb 0.2 % (0.3-1.12); FO2Hb 90.4 % (94-100); MINUTE VOLUME 10 L/min; PATIENT TEMPERATURE 35.7; PEEP 10 cm H2O; RESPIRATORY RATE 15 b/min; RESPIRATORY RATE (OBSERVED) 16 b/min; TIDAL VOLUME 550 mL; TOTAL HEMOGLOBIN 13.3 G/dl (14.0-17.9)
[2019-07-03] MEDS ORDERED: furosemide 40mg/4ml inj IV ONE (22:05)
[2019-07-03] MEDS ORDERED: DOBUTamine-DoBUTrex 500mg/D5W 250 ML IV PRN (23:25)
[2019-07-04] VITALS (14 sets, daily range): BP systolic 83–104; BP diastolic 45–74
[2019-07-04 03:05] LABS: ABG BASE EXCESS -8.9 mmol/L (-2.0-3.0); ABG HCO3 18.3 mmol/L (22.0-26.0); ABG OXYGEN SATURATION 97.9 % (95-98); ABG PCO2 (T) 42.5 mmHg (35.0-45.0); ABG PH (T) 7.246 (7.350-7.450); ABG PO2 (T) 118.5 mmHg (83-108); FCOHb 0.3 % (0.5-1.5); FMetHb 0.2 % (0.3-1.12); FO2Hb 97.4 % (94-100); MINUTE VOLUME 8 L/min; PATIENT TEMPERATURE 36.1; PEEP 10 cm H2O; RESPIRATORY RATE 14 b/min; RESPIRATORY RATE (OBSERVED) 14 b/min; TIDAL VOLUME 550 mL; TOTAL HEMOGLOBIN 12.2 G/dl (14.0-17.9)
[2019-07-04 03:17] LABS: BASOPHILS % (AUTO) 0 % (0-1); HEMOGLOBIN 11.3 g/dl (14.0-17.9); LYMPHOCYTES # (AUTO) 0.4 X10'3 (1.1-4.8); MONOCYTES # (AUTO) 0.4 X10'3 (0-0.9); NEUTROPHILS # (AUTO) 5.2 X10'3 (1.8-7.7)
[2019-07-04 03:19] LABS: EOSINOPHILS % (AUTO) 0.1 % (0-6); HEMATOCRIT 33.2 % (42.0-52.0); LYMPHOCYTES % (AUTO) 7.2 % (21-51); MEAN CORPUSCULAR HEMOGLOBIN 36.3 PG (27.0-31.0); MEAN CORPUSCULAR HGB CONC 34.1 g/dL (33.0-36.5); MEAN CORPUSCULAR VOLUME 106.3 FL (78-98); MEAN PLATELET VOLUME 9.3 FL (7.4-10.4); MONOCYTES % (AUTO) 5.9 % (2-12); NEUTROPHILS % (AUTO) 86.8 % (42-75); PLATELET COUNT 69 X10'3 (140-440); RED BLOOD COUNT 3.12 X10'6 (4.70-6.10); RED CELL DISTRIBUTION WIDTH 16.5 % (11.5-14.5)
[2019-07-04 03:43] LABS: ALBUMIN 4.4 G/DL (3.4-5.0); ALKALINE PHOSPHATASE 44 IU/L (46-116); ANION GAP 17 (8-16); BILIRUBIN,TOTAL 6.7 MG/DL (0.1-1.0); BLOOD UREA NITROGEN 84 MG/DL (7-18); BUN/CREATININE RATIO 13.8 (5.4-32.0); CALCIUM 6.8 MG/DL (8.5-10.1); CHLORIDE 95 MMOL/L (99-107); CREATININE 6.08 MG/DL (0.60-1.10); GLUCOSE 81 MG/DL (70-104); MAGNESIUM 2.6 MG/DL (1.5-2.4); POTASSIUM 4.7 MMOL/L (3.5-5.1); SODIUM 133 MMOL/L (135-145); TOTAL CARBON DIOXIDE 21.3 MMOL/L (24-32); eGFR 10 ML/MIN
[2019-07-04 04:00] LABS: ALBUMIN/GLOBULIN RATIO 3.1 (1.1-1.5); PHOSPHORUS 7.8 MG/DL (2.3-4.5); TOTAL PROTEIN 5.8 G/DL (6.4-8.2)
[2019-07-04 04:01] LABS: ALANINE AMINOTRANSFERASE 3712 U/L (12-78); ASPARTATE AMINO TRANSFERASE 3602 U/L (10-37)
[2019-07-04] MEDS: pantoprazole 40MG/NS 100ML BAG 100 ML IV SCH ×2 (04:50→11:20)
[2019-07-04 05:27] LABS: TOTAL CELLS COUNTED 100
[2019-07-04 05:30] LABS: BANDS% (MANUAL) 20 % (0-10); EOSINOPHILS % (MANUAL) 1 % (0-6); LYMPHOCYTES % (MANUAL) 6 % (21-51); MONOCYTES % (MANUAL) 8 % (2-12); NEUTROPHILS % (MANUAL) 60 % (42-75)
[2019-07-04 05:31] LABS: METAMYLEOCYTES% (MANUAL) 5 % (0-0); NUCLEATED RED BLOOD CELLS 5 /100WBC (0-0); PLATELET ESTIMATE DECREASED
[2019-07-04 05:32] LABS: ANISOCYTOSIS 1+
[2019-07-04 05:33] LABS: POLYCHROMASIA FEW
--- NOTE | 2019-07-04 06:00 | NUR ---
RN Note -Shift Summary 2129 -Called Torrey Mata regarding peak pressuring and asynchronous with vent. Received orders for ABG and chest xray. 2324 -Called Torrey Mata regarding hypotension. Received order to increase dobutamine to 5mcg 0000 -Only 20mg of Lasix given per Torrey Mata due to blood pressure 010 -all sedation off
--- NOTE | 2019-07-04 06:54 | NUR ---
Patient in room ICU 2042. I have received report from Mac RN and had the opportunity to ask questions and assume patient care. Patient laying in bed with eyes closed, no response to stimuli, on ventilator 60% fio2 peep 10. sating 100%, wallace to gravity, R femoral art line with blood pressure maintaining a map of 70, R femoral central line with dobutamine and protonix infusing. Wallace draining to gravity with minimal urine output. no signs or symptoms of distress will continue to monitor
[2019-07-04] MEDS: albumin (human) 25% 100 ML IV solution IV SCH (07:34)
[2019-07-04] MEDS: folic acid inj. 2 MG, thiamine inj. 100 MG in normal saline 100ml IV soln 100 ML IV SCH (07:41)
[2019-07-04] MEDS: docusate sodium 100mg/10ml UD cup PO SCH (07:41)
[2019-07-04] MEDS: busPIRone 15mg tablet OGT SCH ×2 (07:42)
[2019-07-04] MEDS: MVI, adult No.4 with vit. K 10 ML in dextrose 5% water 500ml 500 ML IV SCH ×2 (08:00)
[2019-07-04] MEDS: heparin, porcine 5000 units/ml vial SQ SCH (08:00)
[2019-07-04] MEDS: nicotine 14mg patch - 24hr TD SCH (08:00)
[2019-07-04] MEDS: K and/or MAG REPLACEMENT MC SCH (08:00)
[2019-07-04] MEDS: K, MAG and/or Phos replacement - Verify level? MC SCH (08:00)
--- NOTE | 2019-07-04 08:20 | NUR ---
when switching patient over to portable vent for head CT patient dropped blood pressure in response to lower peep and rate, no response from patient during transfer
--- NOTE | 2019-07-04 09:20 | NUR ---
during vent care and turning of patient there was no cough response during ET suctioning.
--- NOTE | 2019-07-04 12:30 | NUR ---
notified by instrument technician apprentice that the EEG reading is abnormal, they are requesting a stat read on it, notified Dr. Montiel, he stated he is on his way in and has requested a stat neuo consult and he would like to talk to the family.
--- NOTE | 2019-07-04 13:10 | NUR ---
Dr. Montiel has consulted with the family and they would like to remove all life sustaining measures, Dr. Montiel will place comfort care orders and we will extubate. Instructed by Dr. Montiel to pronounce when patient is asystolic.
[2019-07-04] MEDS ORDERED: LORazepam 2 mg/ml vial IV PRN ×4 (13:40→21:15)
--- NOTE | 2019-07-04 13:53 | NUR ---
patient extubated and 1353 monitor placed on privacy mode for the comfort of the patients family
--- NOTE | 2019-07-04 14:18 | NUR ---
RN IS TO DOCUMENT YES TO ALL APPLICABLE AREAS Pronouncement of : Maggie Casas RN 1. Time Physician Notified: [id number] 2. Date of :07/04/19 3. Time of : 141 4. DNR/Withdraw life support documented: yes 5. Monitor strip has been placed on chart: yes 6. Assessment process is of one-minute duration and includes following criteria: a) Patient is unresponsive to all stimuli: yes b) Pupils fixed and non-reactive:yes c) Auscultation of precordium reveals absence of heart tones: yes d) Auscultation of lungs reveals absence of breath sounds:yes e) Absence of blood pressure / all vital signs:yes f) QRS complexes are not present on monitor / EKG strip: yes g) Pacer spikes without capture: n/a 4. Comments: Patient at 1418 family at bedside, Dr. Montiel notified, family wished to have patient go to [facility], donor network notified ref# [id number] patient is not a candidate for organ or tissue donation per Jordy Blackwell at [facility] network
--- NOTE | 2019-07-04 15:00 | NUR ---
All patient belongings sent home with daughter Leida, clothes, sunglasses, shoes and hat. Admitting and security came up and released his wallet and car damon
--- NOTE | 2019-07-04 16:40 | NUR ---
Ritika notified, they will be her at approximately 5359
[2019-07-04] MEDS ORDERED: lactobacillus rhamnosus 10,000 MMU CELLS/CAPSULE PO SCH (20:00)
[2019-07-04] MEDS ORDERED: LORazepam 1 MG tablet PO PRN ×2 (20:15→21:15)
== END 2019-07-04 18:12 | disposition expired | DRG 292 ==
LOC: ER 12:36 → ED HOLD 15:37 → MED 3N 17:56 → ICU 2S 07-01 10:31
PROVIDERS: ADMIT Internal Medicine; ATTEND Internal Medicine Critical Care Medicine
PROC: B32T1ZZ Computerized Tomography (CT Scan) of Left Pulmonary Artery using Low Osmolar Contrast (ICD-10-PCS; 2019-06-30)
PROC: B3201ZZ Computerized Tomography (CT Scan) of Thoracic Aorta using Low Osmolar Contrast (ICD-10-PCS; 2019-06-30)
PROC: B32S1ZZ Computerized Tomography (CT Scan) of Right Pulmonary Artery using Low Osmolar Contrast (ICD-10-PCS; 2019-06-30)
PROC: 5A1945Z Respiratory Ventilation, 24-96 Consecutive Hours (ICD-10-PCS; principal; 2019-07-01)
PROC: 0BH17EZ Insertion of Endotracheal Airway into Trachea, Via Natural or Artificial Opening (ICD-10-PCS; 2019-07-01)
PROC: 5A12012 Performance of Cardiac Output, Single, Manual (ICD-10-PCS; 2019-07-01)
PROC: 04HY32Z Insertion of Monitoring Device into Lower Artery, Percutaneous Approach (ICD-10-PCS; 2019-07-01)
PROC: 4A10X4Z Monitoring of Central Nervous Electrical Activity, External Approach (ICD-10-PCS; 2019-07-04)
DX: I50.21 Acute systolic (congestive) heart failure (principal); E87.4 Mixed disorder of acid-base balance; F10.230 Alcohol dependence with withdrawal, uncomplicated; F15.10 Other stimulant abuse, uncomplicated; F17.210 Nicotine dependence, cigarettes, uncomplicated; E66.01 Morbid (severe) obesity due to excess calories; I48.91 Unspecified atrial fibrillation; N18.3 Chronic kidney disease, stage 3 (moderate); R00.0 Tachycardia, unspecified; R74.8 Abnormal levels of other serum enzymes; Z28.21 Immunization not carried out because of patient refusal; Z88.0 Allergy status to penicillin; Z68.32 Body mass index [BMI] 32.0-32.9, adult
CPT/HCPCS: 36415; 36600; 70450; 71045; 71260; 74018; 80048; 80053; 80061; 80305; 80320; 81001; 82150; 82803; 82810; 82948; 83036; 83605; 83690; 83735; 83880; 84100; 84145; 84439; 84443; 84484; 85018; 85025; 85610; 85651; 85730; 87040; 87070; 87081; 90732; 92950; 93005; 93306; 94002; 94003; 94640; 94760; 95816; 96365; 96375; 96376; 99285; C9113; G0378; GO378; J0131; J0692; J1250; J1644; J1815; J1940; J2060; J2250; J2405; J3010; J3411; J3430; J3475; J3490; J7030; J7060; P9047; Q2037; Q9967